=== PATIENT | female | born 1985 | race Caucasian/White ===

== ENCOUNTER 2016-06-19 23:32 | Emergency (ER) | payer OTHER | END 2016-06-20 04:15 | disposition home or self-care (01) | LOC: ER 23:32 | DX: K80.20 Calculus of gallbladder without cholecystitis without obstruction (principal) | CPT/HCPCS: 36415; 96361; 96374; 96375; J1885; Q9963; Q9967 ==

== ENCOUNTER 2016-06-20 15:04 | Emergency (ER) | payer OTHER | END 2016-06-20 20:00 | disposition left against medical advice (07) | LOC: ER 15:04 | DX: Z53.21 Procedure and treatment not carried out due to patient leaving prior to being seen by health care provider (principal) ==